=== PATIENT | female | born 1990 | race Hispanic/Latino ===

== ENCOUNTER 2020-02-20 18:11 | Outpatient (CLI) | payer MEDICAID ==
[2020-02-20 19:49] VITALS: BP 121/69
== END 2020-02-20 20:47 | disposition home or self-care (01) ==
LOC: TRG 18:11 → APU 18:12 → TRG 20:47
PROVIDERS: ATTEND Obstetrics & Gynecology
DX: O02.1 Missed abortion (principal); Z3A.17 17 weeks gestation of pregnancy
CPT/HCPCS: 59025